=== PATIENT | male | born 1995 | race Caucasian/White ===

== ENCOUNTER 2023-08-16 16:59 | Emergency (ER) | payer OTHER ==
[~2023-08-16] VITALS: Ht 157.5 cm; Wt 93.0 kg
[2023-08-16 17:00] VITALS: PULSE 68
[2023-08-16 17:06] VITALS: BP 138/62; RESP 16; TEMP 98; O2SAT 100
[2023-08-16] MEDS ORDERED: IBUP-2029 MT (18:42)
== END 2023-08-16 19:34 | disposition home or self-care (01) ==
LOC: ER 16:59
DX: S93.401A Sprain of unspecified ligament of right ankle, initial encounter (principal); E78.00 Pure hypercholesterolemia, unspecified; Y93.H2 Activity, gardening and landscaping; Y92.89 Other specified places as the place of occurrence of the external cause; Y99.8 Other external cause status
CPT/HCPCS: 73610; 99283

== ENCOUNTER 2023-08-17 22:46 | Emergency (ER) | payer OTHER ==
[~2023-08-17] VITALS: Ht 167.6 cm; Wt 94.0 kg
[~2023-08-17 22:46] MED LIST: IBUP-2029 MT
[2023-08-17 22:49] VITALS: TEMP 98.9; O2SAT 99
[2023-08-18 02:58] VITALS: BP 132/63; PULSE 72; RESP 14
[2023-08-18] MEDS: KETOROLAC 60MG/2ML VIAL IM STA (02:58)
[2023-08-18 03:16] LABS: BASOPHILS % 0.2 % (0.0-2.0); EOSINOPHILS % 8.8 % (0.0-5.0); HEMATOCRIT. 42.6 % (42.0-52.0); HEMOGLOBIN. 14.3 g/dL (14.0-18.0); LYMPHOCYTES % 36.4 % (20.0-50.0); MEAN CORPUSCULAR HEMOGLOBIN 27.4 pg (28.0-32.0); MEAN CORPUSCULAR HGB CONC 33.6 g/dL (31.0-37.0); MEAN CORPUSCULAR VOLUME 81.6 fL (80.0-94.0); MEAN PLATELET VOLUME 7.6 fl (7.4-10.4); MONOCYTES % 7.4 % (2.0-8.0); NEUTROPHILS % 47.2 % (40.0-76.0); PLATELET 212 x1000/uL (130-400); RED BLOOD CELL COUNT 5.22 mill/uL (4.7-6.1); RED CELL DISTRIBUTION WIDTH 13.8 % (11.6-14.6); WHITE BLOOD COUNT 9.6 x1000/uL (4.5-11.0)
[2023-08-18 03:29] LABS: CALCIUM 8.6 mg/dL (8.7-10.4); CARBON DIOXIDE 29 mEq/L (21-32); CHLORIDE 105 mEq/L (98-107); CREATININE 0.9 mg/dL (0.6-1.3); GLUCOSE 116 mg/dL (70-105); POTASSIUM 4.1 mEq/L (3.5-5.1); SODIUM 140 mEq/L (136-145); UREA NITROGEN BLOOD 9 mg/dL (9-23); URIC ACID 6.2 mg/dL (3.7-9.2)
[2023-08-18] MEDS ORDERED: HYDR-4001 MT (04:01)
== END 2023-08-18 04:50 | disposition home or self-care (01) ==
LOC: ER 22:46
DX: S93.401A Sprain of unspecified ligament of right ankle, initial encounter (principal); E78.00 Pure hypercholesterolemia, unspecified; X58.XXXA Exposure to other specified factors, initial encounter; Y93.89 Activity, other specified; Y92.89 Other specified places as the place of occurrence of the external cause; Y99.8 Other external cause status
CPT/HCPCS: 99283; 80048; 84550; 85025; 36415; 96372; J1885; Z7610